=== PATIENT | female | born 2000 | race Caucasian/White ===

== ENCOUNTER → 2024-07-13 | Outpatient (CLI) | payer BC, SELFPAY | END | disposition home or self-care (01) | LOC: SLDO 17:00 | PROVIDERS: PCP Registered Nurse; Referring Provider Registered Nurse; Visit Provider Registered Nurse | DX: R30.0 Dysuria (principal) | CPT/HCPCS: 87086 ==

== ENCOUNTER → 2024-07-13 | Outpatient (CLI) | payer BC, SELFPAY ==
--- NOTE | 2024-07-13 10:31 | XR_ITS ---
Examination: Transvaginal ultrasound of the pelvis, complete Technique: Transvaginal sonographic images pelvis performed using [facility] scale imaging Exam date and time: July 14, 2019 5:11 AM INDICATIONS: Onset right pelvic pain beginning 2 weeks ago FINDINGS: Uterus 7.6 cm endometrial stripe 1.3 cm No uterine mass or intrauterine gestation Right ovary 5.5 cm arterial flow, simple cyst 27 mm, complex cyst with septations 4.6 x 2.5 x 2.9 cm Left ovary 3.1 cm arterial flow 13 mm follicular cyst IMPRESSION: Complex right adnexal cyst with internal septations, 4.6 x 2.5 x 2.9 cm, recommend 3 month follow-up transabdominal pelvic sonography.
== END | disposition home or self-care (01) ==
LOC: CDIM 10:03
PROVIDERS: PCP Family Medicine; Referring Provider Registered Nurse; Visit Provider Registered Nurse
DX: E27.8 Other specified disorders of adrenal gland (principal)
CPT/HCPCS: 76830